=== PATIENT | female | born 1970 | race Caucasian/White ===

== ENCOUNTER → 2021-04-23 | Outpatient (CLI) | payer BC ==
--- NOTE | 2021-04-23 15:54 | REP ---
INDICATION: SOLITARY PULMONARY NODULE COMPARISON: None. TECHNIQUE: Standard helical technique without contrast FINDINGS: There is no mediastinal or hilar adenopathy. There are no pleural or pericardial effusions. The imaged upper abdomen and imaged osseous structures are within normal limits. Evaluation of the lung zheng shows 5 mm size nodule in the right lower lobe. IMPRESSION: According to the revised Fleischner society criteria the 5 mm size nodule seen in the right lower lobe represents a category 2 lesion for which a 1 year follow-up CT scan of the chest is recommended. <Electronically signed by Rio Oseguera > 04/23/21 8171
== END ==
LOC: M PLAIMG 15:00
PROVIDERS: ATTEND Nurse Practitioner Family
DX: R91.1 Solitary pulmonary nodule (principal)

== ENCOUNTER 2021-07-08 08:28 | Inpatient (IN) | payer BC, OTHER ==
[~2021-07-08] VITALS: Ht 154.9 cm; Wt 65.9 kg
[2021-07-08 10:14] LABS: HEMATOCRIT 40.4 % (36.0-47.0); HEMOGLOBIN 13.7 g/dl (12.0-15.5); MEAN CORPUSCULAR HEMOGLOBIN 29.9 pg (27.0-33.0); MEAN CORPUSCULAR HGB CONC 33.9 g/dl (32.0-36.5); MEAN CORPUSCULAR VOLUME 88.2 fl (80.0-96.0); PLATELET COUNT, AUTOMATED 224 10^3/uL (150-450); RED BLOOD COUNT 4.58 10^6/uL (4.00-5.40); WHITE BLOOD COUNT 4.6 10^3/uL (4.0-10.0)
[2021-07-08 10:39] LABS: AMPHETAMINES LEVEL URINE NEGATIVE (NEGATIVE); BARBITURATES URINE NEGATIVE (NEGATIVE); BENZODIAZEPINES URINE NEGATIVE (NEGATIVE); CANNABINOIDS URINE NEGATIVE (NEGATIVE); COCAINE METABOLITE URINE NEGATIVE (NEGATIVE); METHADONE URINE NEGATIVE (NEGATIVE); OPIATES URINE NEGATIVE (NEGATIVE); PHENCYCLIDINE URINE NEGATIVE (NEGATIVE)
[2021-07-08 10:52] LABS: ACETAMINOPHEN LEVEL < 2.0 UG/ML (10.0-30.0); ALBUMIN 3.6 GM/DL (3.2-5.2); ALT/SGPT 23 U/L (12-78); BILIRUBIN,DIRECT 0.1 MG/DL (0.0-0.2); BILIRUBIN,TOTAL 0.3 MG/DL (0.2-1.0); BLOOD UREA NITROGEN 11 MG/DL (7-18); CALCIUM LEVEL 9.1 MG/DL (8.5-10.1); CARBON DIOXIDE LEVEL 30 MEQ/L (21-32); CHLORIDE LEVEL 106 MEQ/L (98-107); CREATININE FOR GFR 0.79 MG/DL (0.55-1.30); ETHYL ALCOHOL (ETHANOL) < 0.003 % (0.000-0.010); GLOMERULAR FILTRATION RATE > 60.0 (>51); GLUCOSE, FASTING 92 MG/DL (70-100); POTASSIUM SERUM 4.4 MEQ/L (3.5-5.1); SALICYLATE LEVEL < 1.7 MG/DL (5.0-30.0); SODIUM LEVEL 139 MEQ/L (136-145); TOTAL PROTEIN 6.6 GM/DL (6.4-8.2)
[2021-07-08 11:01] LABS: RSV AMPLIFICATION NEGATIVE (NEGATIVE)
[2021-07-08] MEDS ORDERED: CLON1TAB8 PO (12:14)
[2021-07-08] MEDS ORDERED: DESV50TA3 PO (12:14)
[2021-07-08] MEDS ORDERED: MOM 30ML SUSPENSION UDC PO PRN (13:25)
[2021-07-08] MEDS ORDERED: IBUPROFEN 400MG TAB PO PRN (13:25)
[2021-07-08] MEDS ORDERED: MAALOX 30 ML SUSP *UDC PO PRN (13:25)
[2021-07-08] MEDS ORDERED: traZODone 50 MG TAB PO PRN (13:25)
[2021-07-08] MEDS ORDERED: VITA100093 PO (14:01)
[2021-07-08] MEDS ORDERED: CVS1CHW13 PO (14:01)
[2021-07-08] MEDS ORDERED: VITATAB73 PO (14:01)
[2021-07-08] MEDS ORDERED: HOME MED LIST COMPLETE! XX SCH (14:05)
[2021-07-08] MEDS ORDERED: clonazePAM 1 MG TAB PO SCH (21:00)
[2021-07-08] MEDS ORDERED: DESVENLAFAXINE ER 50 MG TABLET (PRISTIQ) PO SCH (21:00)
[2021-07-08] MEDS: clonazePAM 1 MG TAB PO SCH (21:11)
[2021-07-08] MEDS: DESVENLAFAXINE ER 50 MG TABLET (PRISTIQ) PO SCH (21:51)
[2021-07-09 07:19] VITALS: BP 110/71
[2021-07-09] MEDS: DESVENLAFAXINE ER 50 MG TABLET (PRISTIQ) PO SCH ×2 (08:13→20:05)
[2021-07-09] MEDS: clonazePAM 1 MG TAB PO SCH ×2 (08:13→20:05)
[2021-07-09] MEDS ORDERED: DESVENLAFAXINE ER 50 MG TABLET (PRISTIQ) PO SCH (09:00)
[2021-07-09 18:45] VITALS: BP 120/51
[2021-07-10 06:27] VITALS: BP 108/58
[2021-07-10] MEDS: clonazePAM 1 MG TAB PO SCH (08:07)
[2021-07-10] MEDS: DESVENLAFAXINE ER 50 MG TABLET (PRISTIQ) PO SCH (08:07)
== END 2021-07-10 12:45 | disposition home or self-care (01) | DRG 756 ==
LOC: M ED 08:28 → M ED INP 13:21 → M PSY 16:14
PROVIDERS: ADMIT Student in an Organized Health Care Education/Training Program; ATTEND Psychiatry & Neurology Psychiatry
DX: F41.1 Generalized anxiety disorder (principal); R45.851 Suicidal ideations; F42.9 Obsessive-compulsive disorder, unspecified; K90.0 Celiac disease; Z88.5 Allergy status to narcotic agent; Z88.0 Allergy status to penicillin; Z88.8 Allergy status to other drugs, medicaments and biological substances; Z91.013 Allergy to seafood; Z91.041 Radiographic dye allergy status; Z20.822 Contact with and (suspected) exposure to COVID-19; Z79.899 Other long term (current) drug therapy

== ENCOUNTER → 2022-05-18 | Outpatient (CLI) | payer BC ==
[~2022-05-18] MED LIST: CLON1TAB8 PO; CVS1CHW13 PO; DESV50TA3 PO; VITA100093 PO; VITATAB73 PO
== END ==
LOC: M PLAIMG 09:15
PROVIDERS: ATTEND Internal Medicine Pulmonary Disease
DX: R91.8 Other nonspecific abnormal finding of lung field (principal)

== ENCOUNTER → 2022-12-16 | Outpatient (REF) | payer BC ==
[~2022-12-16] MED LIST changes: +KLON0.5T PO; +PRIS50TA PO
[2022-12-16 17:36] LABS: BASO % 0.8 % (0.0-1.0); EOS # 0.2 10^3/uL (0.0-0.5); EOS % 2.9 % (0.0-3.0); HEMATOCRIT 43.6 % (36.0-47.0); HEMOGLOBIN 14.3 g/dl (12.0-15.5); LYMPH # 2.1 10^3/uL (1.5-5.0); LYMPH % 39.3 % (24.0-44.0); MEAN CORPUSCULAR HEMOGLOBIN 29.5 pg (27.0-33.0); MEAN CORPUSCULAR HGB CONC 32.8 g/dl (32.0-36.5); MEAN CORPUSCULAR VOLUME 89.9 fl (80.0-96.0); MONO # 0.4 10^3/uL (0.0-0.8); MONO % 7.3 % (2.0-8.0); NEUTROPHILS # 2.6 10^3/uL (1.5-8.5); NEUTROPHILS % 49.5 % (36.0-66.0); PLATELET COUNT, AUTOMATED 254 10^3/uL (150-450); RED BLOOD COUNT 4.85 10^6/uL (4.00-5.40); WHITE BLOOD COUNT 5.2 10^3/uL (4.0-10.0)
[2022-12-16 18:08] LABS: ALBUMIN 3.9 G/DL (3.2-5.2); ALKALINE PHOSPHATASE 85 U/L (46-116); ALT/SGPT 20 U/L (7.0-40); AST/SGOT 12 U/L (<34); BILIRUBIN,TOTAL 0.8 MG/DL (0.3-1.2); BLOOD UREA NITROGEN 11 MG/DL (9-23); CALCIUM LEVEL 9.8 MG/DL (8.5-10.1); CARBON DIOXIDE LEVEL 29 MMOL/L (20-31); CHLORIDE LEVEL 104 MMOL/L (98-107); CHOLESTEROL LEVEL 227 MG/DL (<200); CHOLESTEROL RISK RATIO 2.43 (<5); CREATININE FOR GFR 0.71 MG/DL (0.55-1.30); GLOMERULAR FILTRATION RATE > 60.0 (>51); GLUCOSE, FASTING 84 MG/DL (60-100); HDL CHOLESTEROL 93.2 MG/DL (>40); LDL CHOLESTEROL 121.6 MG/DL (<100); NON-HDL-C 133.8 MG/DL; POTASSIUM SERUM 5.1 MMOL/L (3.5-5.1); SODIUM LEVEL 137 MMOL/L (136-145); THYROID STIMULATING HORMONE 1.014 uIU/ML (0.55-4.78); TOTAL 25(OH) VITAMIN D 28.5 NG/ML (20.0-100.0); TRIGLYCERIDES LEVEL 61 MG/DL (<150)
== END ==
LOC: M LAB REF 16:38
PROVIDERS: ATTEND Nurse Practitioner Family
DX: Z13.228 Encounter for screening for other metabolic disorders (principal)

== ENCOUNTER → 2023-08-24 | Outpatient (REF) | payer BC ==
[~2023-08-24] MED LIST changes: -KLON0.5T PO; +KLON0.5T8 PO
[2023-08-24 14:16] LABS: CHOLESTEROL RISK RATIO 3.06 (<5); HDL CHOLESTEROL 75.1 MG/DL (>40); LDL CHOLESTEROL 146.5 MG/DL (<100); NON-HDL-C 154.9 MG/DL
[2023-08-24 14:54] LABS: HEMOGLOBIN A1c 5.4 % (4.0-6.0)
== END ==
LOC: M LAB REF 13:04
PROVIDERS: ATTEND Nurse Practitioner Family
DX: R79.89 Other specified abnormal findings of blood chemistry (principal); R73.09 Other abnormal glucose

== ENCOUNTER → 2023-11-18 | Outpatient (REF) | payer BC ==
[2023-11-23 14:57] LABS: HPV APTIMA Not Detected (Not Detected)
== END ==
LOC: M SFHCWAGY 13:04
PROVIDERS: ATTEND Nurse Practitioner Family
DX: Z12.4 Encounter for screening for malignant neoplasm of cervix (principal)
CPT/HCPCS: 87624; G0123

== ENCOUNTER → 2023-11-24 | Outpatient (CLI) | payer BC | LOC: M WHC 10:16 | PROVIDERS: ATTEND Nurse Practitioner Family | DX: Z12.31 Encounter for screening mammogram for malignant neoplasm of breast (principal) ==

== ENCOUNTER → 2023-12-13 | Outpatient (REF) | payer BC ==
[2023-12-13 13:54] LABS: ALBUMIN 4.4 G/DL (3.2-5.2); ALKALINE PHOSPHATASE 76 U/L (46-116); ALT/SGPT 22 U/L (7.0-40); AST/SGOT 9 U/L (<34); BILIRUBIN,TOTAL 0.4 MG/DL (0.3-1.2); BLOOD UREA NITROGEN 14 MG/DL (9-23); CALCIUM LEVEL 10.1 MG/DL (8.5-10.1); CARBON DIOXIDE LEVEL 27 MMOL/L (20-31); CHLORIDE LEVEL 106 MMOL/L (98-107); CHOLESTEROL LEVEL 271 MG/DL (<200); CHOLESTEROL RISK RATIO 2.99 (<5); CREATININE FOR GFR 0.76 MG/DL (0.55-1.30); GLOMERULAR FILTRATION RATE > 60.0 (>51); GLUCOSE, FASTING 106 MG/DL (60-100); HDL CHOLESTEROL 90.5 MG/DL (>40); LDL CHOLESTEROL 172.3 MG/DL (<100); NON-HDL-C 180.5 MG/DL; POTASSIUM SERUM 4.6 MMOL/L (3.5-5.1); SODIUM LEVEL 139 MMOL/L (136-145); TOTAL PROTEIN 7.8 G/DL (5.7-8.2); TRIGLYCERIDES LEVEL 41 MG/DL (<150)
[2023-12-13 13:55] LABS: THYROID STIMULATING HORMONE 1.169 uIU/ML (0.55-4.78)
[2023-12-13 13:56] LABS: TOTAL 25(OH) VITAMIN D 41.1 NG/ML (20.0-100.0)
[2023-12-13 13:58] LABS: HEMOGLOBIN A1c 5.4 % (4.0-6.0)
[2023-12-13 14:10] LABS: BASO % 0.6 % (0.0-1.0); EOS # 0.1 10^3/uL (0.0-0.5); EOS % 1.2 % (0.0-3.0); HEMOGLOBIN 15.1 g/dl (12.0-15.5); LYMPH # 2.1 10^3/uL (1.5-5.0); LYMPH % 42.2 % (24.0-44.0); MEAN CORPUSCULAR HGB CONC 33.6 g/dl (32.0-36.5); MEAN CORPUSCULAR VOLUME 89.5 fl (80.0-96.0); MONO # 0.3 10^3/uL (0.0-0.8); MONO % 5.6 % (2.0-8.0); NEUTROPHILS # 2.4 10^3/uL (1.5-8.5); NEUTROPHILS % 50.2 % (36.0-66.0); PLATELET COUNT, AUTOMATED 229 10^3/uL (150-450); RED BLOOD COUNT 5.03 10^6/uL (4.00-5.40); WHITE BLOOD COUNT 4.9 10^3/uL (4.0-10.0)
== END ==
LOC: M LAB REF 13:07
PROVIDERS: ATTEND Nurse Practitioner Family
DX: E66.3 Overweight (principal); R79.89 Other specified abnormal findings of blood chemistry; E55.9 Vitamin D deficiency, unspecified

== ENCOUNTER 2024-03-01 01:34 | Inpatient (IN) | payer BC ==
[~2024-03-01] VITALS: Ht 154.9 cm; Wt 69.4 kg
[2024-03-01] MEDS: NS 1,000 ML IV ONE (02:15)
[2024-03-01 02:26] LABS: BASO % 0.4 % (0.0-1.0); EOS # 0.1 10^3/uL (0.0-0.5); EOS % 2.4 % (0.0-3.0); HEMATOCRIT 38.3 % (36.0-47.0); HEMOGLOBIN 13.2 g/dl (12.0-15.5); LYMPH # 2.2 10^3/uL (1.5-5.0); MEAN CORPUSCULAR HEMOGLOBIN 30.1 pg (27.0-33.0); MEAN CORPUSCULAR HGB CONC 34.5 g/dl (32.0-36.5); MEAN CORPUSCULAR VOLUME 87.2 fl (80.0-96.0); MONO # 0.4 10^3/uL (0.0-0.8); MONO % 7.3 % (2.0-8.0); NEUTROPHILS # 2.7 10^3/uL (1.5-8.5); NEUTROPHILS % 49.5 % (36.0-66.0); PLATELET COUNT, AUTOMATED 216 10^3/uL (150-450); RED BLOOD COUNT 4.39 10^6/uL (4.00-5.40); WHITE BLOOD COUNT 5.5 10^3/uL (4.0-10.0)
[2024-03-01 02:44] LABS: LIPASE 28 U/L (12-53)
[2024-03-01 02:45] LABS: ALBUMIN 3.6 G/DL (3.2-5.2); ALKALINE PHOSPHATASE 68 U/L (35-104); ALT/SGPT 19 U/L (7.0-40); AST/SGOT 15 U/L (<34); BILIRUBIN,DIRECT < 0.1 MG/DL (<0.4); BILIRUBIN,TOTAL 0.3 MG/DL (0.3-1.2); BLOOD UREA NITROGEN 8 MG/DL (9-23); CALCIUM LEVEL 9.6 MG/DL (8.5-10.1); CARBON DIOXIDE LEVEL 29 MMOL/L (20-31); CHLORIDE LEVEL 102 MMOL/L (98-107); CK-MB VALUE MASS 1.2 NG/ML (<3.6); CREATININE FOR GFR 0.79 MG/DL (0.55-1.30); GLOMERULAR FILTRATION RATE > 60.0 (>51); GLUCOSE, FASTING 111 MG/DL (60-100); SODIUM LEVEL 135 MMOL/L (136-145); TOTAL PROTEIN 6.6 G/DL (5.7-8.2)
[2024-03-01 02:47] LABS: THYROID STIMULATING HORMONE 3.695 uIU/ML (0.55-4.78)
[2024-03-01 02:49] LABS: CPK CREATINE PHOSPHOKINASE 75 U/L (34-145)
[2024-03-01 04:37] LABS: CK-MB VALUE MASS 1.1 NG/ML (<3.6); MB/CK RELATIVE INDEX 1.41 (< OR =4)
[2024-03-01] MEDS ORDERED: ACETAMINOPHEN 325 MG TAB PO PRN (05:55)
[2024-03-01] MEDS ORDERED: MOM 30ML SUSPENSION UDC PO PRN (05:55)
[2024-03-01] MEDS: UNRESOLVED CLARIFICATION ENTRY XX STA (06:07)
[2024-03-01 07:34] LABS: INR 0.88; PARTIAL THROMBOPLASTIN TIME 24.2 SECONDS (24.8-34.2); PROTHROMBIN TIME 12.2 SECONDS (12.5-14.5)
[2024-03-01] MEDS: DOCUSATE SODIUM 100MG CAPSULE PO SCH (07:40)
[2024-03-01] MEDS ORDERED: CLON1TAB17 PO ×2 (08:22)
[2024-03-01] MEDS ORDERED: HOME MED LIST COMPLETE! XX SCH (08:25)
[2024-03-01] MEDS: clonazePAM 1 MG TAB PO SCH (09:00)
[2024-03-01] MEDS: DESVENLAFAXINE ER 50MG TABLET (PRISTIQ) PO SCH (09:00)
[2024-03-01] MEDS: CALCIUM CARBONATE 500 MG CHEW U/D PO PRN (09:40)
[2024-03-01 12:28] VITALS: BP 116/77; TEMP 98.1
[2024-03-01 12:30] VITALS: O2SAT 98
[2024-03-01] MEDS ORDERED: RIVAROXABAN 10MG TAB (XARELTO) PO SCH (18:00)
== END 2024-03-01 12:40 | disposition home or self-care (01) | DRG 207 ==
LOC: M ED 01:34 → M ED INP 05:55
PROVIDERS: ADMIT Student in an Organized Health Care Education/Training Program; ATTEND Student in an Organized Health Care Education/Training Program
PROC: B246ZZZ Ultrasonography of Right and Left Heart (ICD-10-PCS; principal; 2024-03-01)
DX: I95.9 Hypotension, unspecified (principal); K90.0 Celiac disease; R55 Syncope and collapse; F32.A Depression, unspecified; F41.9 Anxiety disorder, unspecified; Z79.899 Other long term (current) drug therapy; Z88.5 Allergy status to narcotic agent; Z91.013 Allergy to seafood; Z91.041 Radiographic dye allergy status; Z88.0 Allergy status to penicillin; Z88.8 Allergy status to other drugs, medicaments and biological substances

== ENCOUNTER → 2024-03-23 | Outpatient (REF) | payer BC ==
[~2024-03-23] MED LIST changes: +CLON1TAB17 PO
[2024-03-23 14:06] LABS: CHOLESTEROL RISK RATIO 2.77 (<5); HDL CHOLESTEROL 88.2 MG/DL (>40); LDL CHOLESTEROL 144.4 MG/DL (<100); NON-HDL-C 156.8 MG/DL
== END ==
LOC: M LAB REF 13:16
PROVIDERS: ATTEND Nurse Practitioner Family
DX: E78.5 Hyperlipidemia, unspecified (principal)

== ENCOUNTER 2025-03-14 04:31 | Emergency (ER) | payer BC ==
[~2025-03-14] VITALS: Ht 154.9 cm; Wt 68.2 kg
[2025-03-14 05:07] LABS: BASO # 0.0 10^3/uL (0.0-0.2); BASO % 0.8 % (0.0-1.0); EOS # 0.1 10^3/uL (0.0-0.5); EOS % 3.0 % (0.0-3.0); LYMPH # 1.5 10^3/uL (1.5-5.0); LYMPH % 36.5 % (24.0-44.0); MONO # 0.3 10^3/uL (0.0-0.8); MONO % 6.8 % (2.0-8.0); NEUTROPHILS # 2.1 10^3/uL (1.5-8.5); NEUTROPHILS % 52.6 % (36.0-66.0); PLATELET COUNT, AUTOMATED 222 10^3/uL (150-450)
[2025-03-14 05:35] LABS: ALT/SGPT 25 U/L (7.0-40); AST/SGOT 20 U/L (<34); CALCIUM LEVEL 8.7 MG/DL (8.5-10.1); CARBON DIOXIDE LEVEL 28 MMOL/L (20-31); CHLORIDE LEVEL 101 MMOL/L (98-107); CK-MB VALUE MASS 2.3 NG/ML (<3.6); CREATININE FOR GFR 0.65 MG/DL (0.55-1.30); GLOMERULAR FILTRATION RATE > 90.0 (>51); INR 0.84; POTASSIUM SERUM 4.5 MMOL/L (3.5-5.1); SODIUM LEVEL 137 MMOL/L (136-145)
[2025-03-14 05:50] LABS: CPK CREATINE PHOSPHOKINASE 76 U/L (34-145); MB/CK RELATIVE INDEX 3.02 (< OR =4)
[2025-03-14 06:49] LABS: CK-MB VALUE MASS 2.2 NG/ML (<3.6)
[2025-03-14 06:50] LABS: CPK CREATINE PHOSPHOKINASE 65 U/L (34-145); MB/CK RELATIVE INDEX 3.38 (< OR =4)
[2025-03-14] MEDS ORDERED: HOME MED LIST COMPLETE! XX SCH (08:35)
[2025-03-14 11:15] VITALS: BP 102/70; TEMP 98.2
[2025-03-14 11:29] VITALS: O2SAT 96
== END 2025-03-14 11:42 | disposition home or self-care (01) ==
LOC: M ED 04:31
DX: R07.9 Chest pain, unspecified (principal); R20.0 Anesthesia of skin; M51.360 Other intervertebral disc degeneration, lumbar region with discogenic back pain only; R00.1 Bradycardia, unspecified; F41.9 Anxiety disorder, unspecified; F32.A Depression, unspecified; E78.5 Hyperlipidemia, unspecified; Z88.0 Allergy status to penicillin; Z88.5 Allergy status to narcotic agent; Z91.013 Allergy to seafood; Z91.041 Radiographic dye allergy status; Z79.899 Other long term (current) drug therapy

== ENCOUNTER → 2025-04-27 | Outpatient (CLI) | payer BC | LOC: M RAD 12:21 | PROVIDERS: ATTEND Student in an Organized Health Care Education/Training Program | DX: R05.1 Acute cough (principal) ==